=== PATIENT | male | born 1975 | race Two or more races ===

== ENCOUNTER 2016-11-26 16:36 | Inpatient (IN) | payer SELFPAY ==
[~2016-11-26] VITALS: Ht 152.4 cm; Wt 61.9 kg
[2016-11-26] MEDS ORDERED: SODIUM CHLORIDE 0.9% 1,000 ML IV ONE (17:00)
[2016-11-26] MEDS ORDERED: LORAZEPAM 2MG/ML CPJ IV ONE (17:00)
[2016-11-26] MEDS ORDERED: LEVETIRACETAM 500MG PREMIX 100 ML IV ONE (17:00)
[2016-11-26] MEDS ORDERED: FOLIC ACID 1 MG, THIAMINE HCL 100 MG, MVI, ADULT NO.1 10 ML in DEXTROSE 5% WATER 1,000 ML IV ONE ×4 (17:00)
[2016-11-26 17:29] LABS: CLARITY URINE CLEAR (CLEAR); COLOR URINE DARK YELLOW (YELLOW); GLUCOSE URINE NEGATIVE (NEGATIVE); KETONES URINE 2+ (NEGATIVE); LEUKOCYTE ESTERASE URINE NEGATIVE (NEGATIVE); NITRITE URINE NEGATIVE (NEGATIVE); OCCULT BLOOD URINE 1+ (NEGATIVE); PROTEIN URINE 2+ (NEGATIVE); SPECIFIC GRAVITY URINE 1.023 (1.005-1.030); UROBILINOGEN URINE 0.2 E.U./dL (0.2-1.0)
[2016-11-26 17:36] LABS: *AMPHETAMINES SCREEN URINE NEGATIVE (NEGATIVE); *BARBITURATES SCREEN URINE NEGATIVE (NEGATIVE); *BENZODIAZEPINES SCREEN URINE NEGATIVE (NEGATIVE); *COCAINE SCREEN URINE NEGATIVE (NEGATIVE); CANNABINOID URINE SCREEN NEGATIVE (NEGATIVE); METHADONE URINE SCREEN NEGATIVE (NEGATIVE); OPIATES URINE SCREEN NEGATIVE (NEGATIVE); PHENCYCLIDINE URINE SCREEN NEGATIVE (NEGATIVE)
[2016-11-26 18:31] LABS: HEMATOCRIT. 36.2 % (42.0-52.0); HEMOGLOBIN. 12.3 g/dL (14.0-18.0); MEAN CORPUSCULAR HEMOGLOBIN 32.2 pg (28.0-32.0); MEAN CORPUSCULAR VOLUME 94.5 fL (80.0-94.0); MEAN PLATELET VOLUME 8.6 fl (7.4-10.4); PLATELET 113 x1000/uL (130-400); RED BLOOD CELL COUNT 3.83 mill/uL (4.7-6.1); RED CELL DISTRIBUTION WIDTH 13.5 % (11.6-14.6)
[2016-11-26 18:44] LABS: CARBON DIOXIDE 23 mEq/L (21-32); CHLORIDE 96 mEq/L (98-107); ETHANOL BLOOD 20 mg/dL; TROPONIN I 0.11 ng/mL (0.00-0.04)
[2016-11-26 18:50] LABS: CARBAMAZEPINE < 0.5 ug/mL (4-12); PHENOBARBITAL < 2.1 ug/mL (15.0-40.0); PHENYTOIN < 0.4 ug/mL (10-20); VALPROIC ACID < 3.0 ug/mL (50-100)
[2016-11-26 18:51] LABS: PLATELET ESTIMATE DECREASED
[2016-11-26] MEDS ORDERED: ASPIRIN 81MG TABLET PO ONE (19:30)
[2016-11-26] MEDS ORDERED: MAGNESIUM 1 G PREMIX 100 ML IV ONE (19:30)
[2016-11-26] MEDS ORDERED: KCL 10MEQ/50ML PREMIX 50 ML IV ONE (19:30)
[2016-11-26] MEDS ORDERED: CLONIDINE 0.1MG TABLET PO PRN (20:00)
[2016-11-26] MEDS ORDERED: IPRATROPIUM/ALBUTEROL 0.5-3(2.5)MG/3ML NEB INH PRN (20:00)
[2016-11-26] MEDS ORDERED: KETOROLAC 15MG/ML VIAL IV PRN (20:00)
[2016-11-26] MEDS ORDERED: MAGNESIUM/ALUMINUM HYDROXIDE/SIMETHICONE 30ML UDC PO PRN (20:00)
[2016-11-26] MEDS ORDERED: DIPHENHYDRAMINE 50MG/ML VIAL IV PRN (20:00)
[2016-11-26] MEDS ORDERED: GUAIFENESIN 200MG/10ML SUGAR FREE UDC PO PRN (20:00)
[2016-11-26] MEDS ORDERED: LORAZEPAM 2MG/ML CPJ IV PRN (20:00)
[2016-11-26] MEDS ORDERED: DOCUSATE SODIUM 100MG CAPSULE PO PRN (20:00)
[2016-11-26] MEDS ORDERED: SODIUM CHLORIDE 0.9% 1,000 ML IV SCH (20:00)
[2016-11-26] MEDS ORDERED: NA PHOS,M-B/NA PHOS,DI-BA ENEMA 118ML PR PRN ×2 (20:00→22:30)
[2016-11-26] MEDS ORDERED: NITROGLYCERIN 0.4MG TABLET SL SL PRN (20:00)
[2016-11-26] MEDS ORDERED: FAMOTIDINE 20MG/2ML VIAL IV SCH (21:00)
[2016-11-26] MEDS ORDERED: SUCRALFATE 1 G/10 ML UDC PO SCH (21:00)
[2016-11-26] MEDS ORDERED: CHLORDIAZEPOXIDE 25MG CAPSULE PO SCH (22:00)
[2016-11-26 22:24] VITALS: BP 134/81
[2016-11-27 02:00] VITALS: BP 134/81
[2016-11-27 04:00] VITALS: BP 134/90
[2016-11-27] MEDS: SUCRALFATE 1 G/10 ML UDC PO SCH ×2 (05:49→11:26)
[2016-11-27] MEDS ORDERED: CHLORDIAZEPOXIDE 25MG CAPSULE PO SCH (06:00)
[2016-11-27 08:00] VITALS: BP 122/84
[2016-11-27] MEDS ORDERED: FAMOTIDINE 20MG/2ML VIAL IV SCH (09:00)
[2016-11-27 12:00] VITALS: BP 146/92
[2016-11-27 12:47] VITALS: BP 126/68
== END 2016-11-27 13:15 | disposition home or self-care (01) | DRG 775 ==
LOC: ER 16:46 → EDBEDREQ 20:16 → ENRESERV 21:01 → 5WST 22:08 → ER 22:19
PROVIDERS: ADMIT Internal Medicine; ATTEND Internal Medicine
DX: F10.239 Alcohol dependence with withdrawal, unspecified (principal); D61.818 Other pancytopenia; R56.9 Unspecified convulsions; E83.42 Hypomagnesemia; E87.1 Hypo-osmolality and hyponatremia; E87.6 Hypokalemia; R32 Unspecified urinary incontinence; R74.0 Nonspecific elevation of levels of transaminase and lactic acid dehydrogenase [LDH]; Y90.9 Presence of alcohol in blood, level not specified
CPT/HCPCS: 36415; 70450; 71010; 80053; 80156; 80165; 80184; 80185; 80305; 81001; 82962; 83735; 84484; 85025; 86850; 86900; 93005; 96365; 96375; 99285; G0482; J1953; J2060; J3411; J3475; J3480; J3490; J7030; J7040; J7070

== ENCOUNTER 2017-03-02 16:46 | Emergency (ER) | payer MEDICAID ==
[~2017-03-02] VITALS: Ht 172.7 cm; Wt 75.0 kg
[2017-03-03 01:30] VITALS: BP 109/67
== END 2017-03-03 02:50 | disposition home or self-care (01) ==
LOC: ER 17:53
DX: S80.819A Abrasion, unspecified lower leg, initial encounter (principal); F10.229 Alcohol dependence with intoxication, unspecified; Y90.9 Presence of alcohol in blood, level not specified; V19.9XXA Pedal cyclist (driver) (passenger) injured in unspecified traffic accident, initial encounter; Y92.89 Other specified places as the place of occurrence of the external cause; Y93.55 Activity, bike riding; Y99.8 Other external cause status
CPT/HCPCS: 99283

== ENCOUNTER 2021-04-01 21:46 | Inpatient (IN) | payer MEDICAID ==
[~2021-04-01] VITALS: Ht 160 cm; Wt 75.0 kg
[~2021-04-01 21:46] MED LIST: THIA100T88 MT
[2021-04-01] MEDS ORDERED: FOLIC ACID 1 MG, THIAMINE HCL 100 MG, MVI, ADULT NO.1 10 ML in DEXTROSE 5% WATER 1,000 ML IV ONE (22:45)
[2021-04-01] MEDS ORDERED: LEVETIRACETAM 500MG PREMIX 100 ML IV ONE (22:45)
[2021-04-01] MEDS ORDERED: LORAZEPAM 2MG/ML CPJ IV ONE (22:45)
[2021-04-01] MEDS ORDERED: MAGNESIUM 2 G PREMIX 50 ML IV ONE (22:45)
[2021-04-01 23:51] LABS: HEMATOCRIT. 37.8 % (42.0-52.0); HEMOGLOBIN. 12.7 g/dL (14.0-18.0); MEAN CORPUSCULAR HEMOGLOBIN 29.6 pg (28.0-32.0); MEAN CORPUSCULAR VOLUME 87.8 fL (80.0-94.0); MEAN PLATELET VOLUME 8.2 fl (7.4-10.4); PLATELET 184 x1000/uL (130-400); RED CELL DISTRIBUTION WIDTH 13.6 % (11.6-14.6)
[2021-04-02 00:06] LABS: CHLORIDE 96 mEq/L (98-107)
[2021-04-02 00:10] LABS: ETHANOL BLOOD < 10 mg/dL
[2021-04-02 04:05] LABS: PLATELET ESTIMATE NORMAL
[2021-04-02] MEDS ORDERED: ONDANSETRON HCL 4MG/2ML INJ IV PRN (08:30)
[2021-04-02] MEDS ORDERED: LORAZEPAM 2MG/ML CPJ IV PRN (08:30)
[2021-04-02] MEDS ORDERED: THIAMINE HCL 100MG TABLET PO SCH (09:00)
[2021-04-02 09:01] LABS: *AMPHETAMINES SCREEN URINE NEGATIVE (NEGATIVE); *BARBITURATES SCREEN URINE NEGATIVE (NEGATIVE)
[2021-04-02 09:02] LABS: *BENZODIAZEPINES SCREEN URINE NEGATIVE (NEGATIVE); *COCAINE SCREEN URINE NEGATIVE (NEGATIVE); METHADONE URINE SCREEN NEGATIVE (NEGATIVE); OPIATES URINE SCREEN NEGATIVE (NEGATIVE)
[2021-04-02 09:03] LABS: CANNABINOID URINE SCREEN NEGATIVE (NEGATIVE); PHENCYCLIDINE URINE SCREEN NEGATIVE (NEGATIVE)
[2021-04-02 10:00] VITALS: BP 149/84
[2021-04-02 10:38] VITALS: BP 149/84
[2021-04-02 12:00] VITALS: BP 142/78
[2021-04-02 14:00] VITALS: BP 148/87
[2021-04-02] MEDS ORDERED: CHLORDIAZEPOXIDE 25MG CAPSULE PO SCH (14:00)
== END 2021-04-02 15:20 | disposition home or self-care (01) | DRG 53 ==
LOC: ER 21:46 → MICUSO 04-02 02:06 → 8WST 04-02 10:38
PROVIDERS: ADMIT Internal Medicine; ATTEND Internal Medicine
DX: R56.9 Unspecified convulsions (principal); E44.1 Mild protein-calorie malnutrition; E87.8 Other disorders of electrolyte and fluid balance, not elsewhere classified; D64.9 Anemia, unspecified; E87.1 Hypo-osmolality and hyponatremia; F10.239 Alcohol dependence with withdrawal, unspecified; R74.01 Elevation of levels of liver transaminase levels; Z82.49 Family history of ischemic heart disease and other diseases of the circulatory system; Z68.29 Body mass index [BMI] 29.0-29.9, adult
CPT/HCPCS: 36415; 71045; 80053; 80305; 80320; 83605; 84484; 85025; 99285; J1953; J2060; J3411; J3475; J3490; J7070; G0480

== ENCOUNTER 2021-08-06 09:26 | Emergency (ER) | payer MEDICAID ==
[~2021-08-06] VITALS: Ht 162.6 cm; Wt 80.0 kg
[2021-08-06 09:28] VITALS: BP 124/80
[2021-08-06] MEDS ORDERED: MAGNESIUM/ALUMINUM HYDROXIDE/SIMETHICONE 30ML UDC PO SCH (09:45)
[2021-08-06] MEDS ORDERED: PANTOPRAZOLE SODIUM 40 MG/VIAL IV SCH (09:45)
[2021-08-06] MEDS ORDERED: VISCOUS LIDOCAINE 2% 15 ML UDC MM SCH (09:45)
[2021-08-06] MEDS ORDERED: SODIUM CHLORIDE 0.9% 1,000 ML IV ONE (10:30)
== END 2021-08-06 15:46 | disposition left against medical advice (07) ==
LOC: ER 09:43
DX: F10.20 Alcohol dependence, uncomplicated (principal); Y90.9 Presence of alcohol in blood, level not specified; R10.13 Epigastric pain; R07.2 Precordial pain; R00.0 Tachycardia, unspecified
CPT/HCPCS: 93005; 99283

== ENCOUNTER 2021-11-08 01:43 | Inpatient (IN) | payer MEDICAID ==
[~2021-11-08] VITALS: Ht 162.6 cm; Wt 80.0 kg
[2021-11-08] MEDS ORDERED: LORAZEPAM 1MG TABLET PO ONE (02:00)
[2021-11-08 02:25] LABS: BASOPHILS % 0.4 % (0.0-2.0); EOSINOPHILS % 0.1 % (0.0-5.0); HEMATOCRIT. 36.3 % (42.0-52.0); HEMOGLOBIN. 12.3 g/dL (14.0-18.0); LYMPHOCYTES % 12.9 % (20.0-50.0); MEAN CORPUSCULAR HEMOGLOBIN 29.3 pg (28.0-32.0); MEAN CORPUSCULAR VOLUME 86.7 fL (80.0-94.0); MEAN PLATELET VOLUME 7.8 fl (7.4-10.4); MONOCYTES % 10.9 % (2.0-8.0); NEUTROPHILS % 75.7 % (40.0-76.0); PLATELET 153 x1000/uL (130-400); RED BLOOD CELL COUNT 4.18 mill/uL (4.7-6.1); RED CELL DISTRIBUTION WIDTH 17.1 % (11.6-14.6)
[2021-11-08 02:32] LABS: CHLORIDE 95 mEq/L (98-107)
[2021-11-08 02:49] LABS: ETHANOL BLOOD < 10 mg/dL
[2021-11-08 02:50] LABS: CLARITY URINE CLEAR (CLEAR); COLOR URINE YELLOW (YELLOW); KETONES URINE 2+ (NEGATIVE); LEUKOCYTE ESTERASE URINE NEGATIVE (NEGATIVE); NITRITE URINE NEGATIVE (NEGATIVE); OCCULT BLOOD URINE NEGATIVE (NEGATIVE); PROTEIN URINE 2+ (NEGATIVE); SPECIFIC GRAVITY URINE 1.016 (1.005-1.030)
[2021-11-08] MEDS ORDERED: POTASSIUM CHLORIDE 20MEQ TABLET SR PO NR (03:00)
[2021-11-08] MEDS ORDERED: SODIUM CHLORIDE 0.9% 1000ML BAG (SEPSIS BOLUS) IV ONE (03:00)
[2021-11-08 03:08] LABS: *AMPHETAMINES SCREEN URINE NEGATIVE (NEGATIVE); *BARBITURATES SCREEN URINE NEGATIVE (NEGATIVE); *BENZODIAZEPINES SCREEN URINE NEGATIVE (NEGATIVE); *COCAINE SCREEN URINE NEGATIVE (NEGATIVE); CANNABINOID URINE SCREEN NEGATIVE (NEGATIVE); METHADONE URINE SCREEN NEGATIVE (NEGATIVE); OPIATES URINE SCREEN NEGATIVE (NEGATIVE); PHENCYCLIDINE URINE SCREEN NEGATIVE (NEGATIVE)
[2021-11-08 11:15] VITALS: BP 143/81
== END 2021-11-08 13:33 | disposition left against medical advice (07) | DRG 53 ==
LOC: ER 01:43 → 6WST 04:17 → ENRESERV 07:18
PROVIDERS: ADMIT Internal Medicine; ATTEND Internal Medicine
DX: R56.9 Unspecified convulsions (principal); F10.239 Alcohol dependence with withdrawal, unspecified; F12.90 Cannabis use, unspecified, uncomplicated; Z53.29 Procedure and treatment not carried out because of patient's decision for other reasons; Z79.899 Other long term (current) drug therapy
CPT/HCPCS: 36415; 80053; 80305; 80320; 81003; 82962; 83605; 84443; 85025; 99291; G0480